=== PATIENT | female | born 1990 | race Caucasian/White ===

== ENCOUNTER → 2021-12-31 14:40 | Outpatient (CLI) | payer OTHER, SELFPAY ==
--- NOTE | 2021-12-31 14:40 | US_ITS ---
FINAL REPORT CLINICAL HISTORY: abnormal uterine bleeding FINDINGS: Transvaginal sonographic images of the pelvis were obtained. The uterus measures 6.9 x 4.0 x 3.7 cm. The endometrium measures 6 mm, which is within normal limits. No uterine mass is identified. The right ovary measures 3.6 cm in length and left ovary measures 2.6 cm in length. Normal blood flow seen to the ovaries. There is a 2.4 cm right ovarian cyst. There is no evidence of free fluid. IMPRESSION: 2.4 cm right ovarian cyst. Reviewed, Interpreted and Dictated by Joby Moore III, MD Transcribed by Crystal Blackmon Authenticated and . [facility]
== END ==
PROVIDERS: PCP Internal Medicine Adolescent Medicine; Visit Provider Obstetrics & Gynecology
DX: N93.9 Abnormal uterine and vaginal bleeding, unspecified (principal)
CPT/HCPCS: 76830

== ENCOUNTER 2023-12-12 11:17 | Emergency (ER) | payer OTHER, SELFPAY ==
[2023-12-12 11:37] VITALS: BMI 20.7
[2023-12-12 11:47] LABS: Microscopic, Urine URINE MICROSCOPIC (MICROSCOPIC)
[2023-12-12 12:15] VITALS: BP 123/80; PULSE 111; RESP 20; TEMP 36.8; O2SAT 100; BMI 20.9
--- NOTE | 2023-12-12 12:29 | ED_ITS ---
Discharge Plan Disposition Patient Disposition: Home, Self-Care Condition: Good Prescriptions Prescriptions: New nitrofurantoin monohyd/m-cryst [Macrobid] 100 mg capsule 100 mg PO Q12H 7 Days Qty: 14 0RF Rx Instructions: must administer with a meal/food phenazopyridine [Pyridium] 200 mg tablet 200 mg PO Q8H 2 Days Qty: 6 0RF No Action buprenorphine-naloxone 8-2 mg tablet, sublingual 1 ea SUBLINGUAL DAILY Patient Comments: PLACE 1 TABLET UNDER THE TONGUE ONCE A DAY cyanocobalamin (vitamin B-12) 1,000 mcg capsule 1,000 mcg PO DAILY levothyroxine [Synthroid] 50 mcg tablet 50 mcg PO DAILY norethindrone-e.estradiol-iron [Aidan Fe 03/22 (28)] 1 mg-20 mcg (21)/75 mg (7) tablet 1 tab PO DAILY Qty: 84 1RF Rx Instructions: Take 21 tablets, skip placebo and start another pack. cyclobenzaprine 10 mg tablet 10 mg PO DAILY Referrals Follow up/Referrals: Chris Rosales MD [Primary Care Provider] - See instructions Activity Restrictions/Add. Instructions Additional Instructions/Restrictions: *Increase fluids. Water not Soda or Tea *Start antibiotic immediately and be sure to take as ordered for the FULL length of time although you should start to see improvement over the next 48 hours *Pyridium as needed Remember this medication will turn your urine . This is normal but it will stain what ever it gets on *You should not use Pyridium for more than 48 hours. If so , follow up with your primary physician to review urine culture and ensure that antibiotic is adequate for infection *Be SURE to follow up anytime for new or worsening symptoms with your family doctor. AND in 48 hours for urine culture results with your family doctor, if you do not have a doctor then you may call back to the [facility] for urine culture results and further treatment. We do recommend that you choose and establish care with a Primary Care Physician. ?AND follow up with them ?in 10-14 days to repeat UA to ensure infection is resolved and blood no longer present *Be sure to let your PCP know that we sent urine cultures from the [facility] so they can follow up to ensure that you area the on the correct antibiotic Call your doctor office and make appointment for 48 hours (2 days from today) ?to follow up and get the results of your urine culture and further treatment Clinical Impressions Clinical Impression: UTI (urinary tract infection) Qualifiers: Urinary tract infection type: site unspecified Hematuria presence: with hematuria Qualified Code(s): N39.0 - Urinary tract infection, site not specified Instructions Patient Instructions: DI for Urinary Tract Infection (UTI), Urinary Tract Infection Print Language Print Language: Kyrgyz Discharge ED Provider: Julissa Akers [facility] [place] General Stated complaint: woke up with blood in urine, frequent urination Mode of Arrival: Ambulatory Source of Information: Patient Limitations: No Limitations Time Seen by Provider: 12/12/23 12:29 Description of Symptoms (Recalled from Triage Doc. by RN): PATIENT C/O BLOOD IN URINE THIS MORNING. PATIENT DENIES ANY PAIN AND STATES THE BLOOD HAS CURRENTLY STOPPED HEENT Symptoms (Recalled from RN notes): No Resp Symptoms (Recalled from RN notes): No Skin Symptoms (Recalled from RN notes): No MS Symptoms (Recalled from RN notes): No Functional Status (Recalled from RN notes): WNL History of Present Illness Provider Complaint: Patient states that she recently started flexeril for spasms in her neck and she started with urinary urgency and frequency felt like she had a UTI and noticed she had blood in her urine States since then it has stopped but still having urgency and frequency Denies low back pain Denies pelvic pain Denies fever Denies hx of kidney stones Related Data Home Medications ?Medication ?Instructions ?Recorded ?Confirmed buprenorphine 8 mg-naloxone 2 mg 1 ea sublingual DAILY 05/30/20 12/12/23 sublingual tablet cyanocobalamin (vitamin B-12) 1,000 mcg PO DAILY 12/20/21 12/12/23 1,000 mcg capsule levothyroxine 50 mcg tablet 50 mcg PO DAILY 12/20/21 12/12/23 (Synthroid) cyclobenzaprine 10 mg tablet 10 mg PO DAILY 12/12/23 12/12/23 Previous Rx's ?Medication ?Instructions ?Recorded norethindrone 1 mg-ethinyl 1 tab PO DAILY #84 tabs 11/14/23 estradiol 20 mcg (21)-iron 75 mg (7) tablet (Aidan Fe 03/22 ()) nitrofurantoin 100 mg PO Q12H 7 days #14 caps 12/12/23 monohydrate/macrocrystals 100 mg capsule (Macrobid) phenazopyridine 200 mg tablet 200 mg PO Q8H pain 2 days #6 tabs 12/12/23 (Pyridium) Allergies Allergy/AdvReac Type Severity Reaction Status Date / Time metronidazole [From Flagyl] Allergy Mild itching,fever, Verified 02/12/23 13:59 welps miconazole [MICONAZOLE] Allergy Unknown Verified 02/12/23 13:59 propoxyphene [PROPOXYPHENE] Allergy Unknown Verified 02/12/23 13:59 Worker's Comp Is this a Worker's Comp case?: No [facility] Disclaimer: The information contained in this section may have been updated after the patient was seen, as this information can be updated by other users. Medical History History of drug abuse History of hypothyroidism Hypothyroidism Surgical History History of appendectomy Family History Other Alcoholism Anemia Asthma Cancer Diabetes Substance abuse Thyroid disorder Social History Smoking Status: Former smoker tobacco type: cigarettes alcohol intake: never substance use type: denies use current occupational status: unemployed Travel in the last 8 weeks: None ROS Obtained: Yes All systems reviewed & no additional complaints except as documented and Yes Systems reviewed as appropriate & no additional complaints except as documented Eyes Eyes: Reports system reviewed and no additional complaints, except as documented and Reports as per HPI ENT Ears, Nose, Mouth, and Throat: Reports system reviewed and no additional complaints, except as documented and Reports as per HPI Cardiovascular Cardiovascular: Reports system reviewed and no additional complaints, except as documented and Reports as per HPI Respiratory Respiratory: Reports system reviewed and no additional complaints, except as documented and Reports as per HPI Gastrointestinal Gastrointestingal: Reports system reviewed and no additional complaints, except as documented and as per HPI; Denies abdominal pain Genitourinary Female Genitourinary: Reports system reviewed and no additional complaints, except as documented, Reports as per HPI, Reports dysuria, Reports hematuria, Reports urinary frequency and Reports urinary urgency Physical Exam General General appearance: alert and in no apparent distress ENT ENT exam: Present mucous membranes moist Respiratory Respiratory exam: Present normal lung sounds bilaterally; Absent respiratory distress or wheezes Cardiovascular Cardiovascular exam: Present regular rate, normal rhythm and normal heart sounds Abdominal Exam Abdominal exam: Present soft and normal bowel sounds; Absent distention, tenderness, guarding or rebound Neurological Exam Neurological exam: Present alert, oriented X3 and normal gait Medical Decision Making Medical Records Screening: Per USPSTF and CDC recommendations, given the prevalence of disease in our region, it is our hospital?s policy to screen for HIV and viral Hepatitis for all patients aged 18 and over and those with ongoing risk factors. [place] Inquiry Pt receiving controlled substance: No N[place]h was queried for this patient: No Vital Signs: 12/12/23 12:15 Temperature 98.3 F Temperature Source Oral Pulse Rate [Left Brachial] 111 H Respiratory Rate 20 Blood Pressure [Left Arm] 123/80 Blood Pressure Mean [Left Arm] 94 Blood Pressure Source [Left Arm] Automatic Cuff Blood Pressure Position [Left Arm] Sitting 02 Sat by Pulse Oximetry 100 Oxygen Delivery Method Room Air Lab Data Lab results reviewed: Yes I reviewed the patient's lab results. Orders (Tests/Meds): ORDERS Category Date Time Status UA [Urinalysis and Microscopic] Stat Lab 12/12/23 11:36 Received
[2023-12-12 12:31] LABS: Appearance,Urine CLEAR (Clear); Bilirubin,Urine Negative (Negative); Blood, Urine 2+ (Negative); Color,Urine YELLOW (Yellow); Glucose,Urine (UA) Negative (Negative); Ketones,Urine Negative (Negative); Leukocyte Esterase,Urine TRACE (Negative); Nitrate,Urine Negative (Negative); Protein,Urine TRACE (Negative)
[2023-12-12 12:46] VITALS: BP 123/80; PULSE 111; RESP 20; TEMP 36.8; O2SAT 100
[2023-12-12 12:50] LABS: Bacteria,Urine Trace /lpf
== END 2023-12-12 12:48 | disposition home or self-care (01) ==
PROVIDERS: Emergency Provider Nurse Practitioner; PCP Internal Medicine Adolescent Medicine
DX: N39.0 Urinary tract infection, site not specified (principal)
CPT/HCPCS: 81001; 99213; G0381

== ENCOUNTER 2024-03-12 09:44 | Outpatient (CLI) | payer OTHER, SELFPAY ==
--- NOTE | 2024-03-12 09:45 | US_ITS ---
PROCEDURE: US TRANSVAGINAL CLINICAL INDICATION: Lower Abdominal pain, Secondary Amenorrhea COMPARISON: CT ABDPELW/O CT ABD PELVIS W/O CONTRAST from 02/18/2013 US PTV US PELVIS-TRANSVAGINAL ONLY from 01/03/2016 US US TRANSVAGINAL from 12/31/2021 FINDINGS: Transvaginal sonographic images of the pelvis were obtained. UTERUS: 6.7cm x 4.0cmx 3.5cm retroverted with a combined endometrial thickness of 12mm. The endometrium appears trilaminar and in-homogeneous. See image 12. There is a small amount of fluid within the cervix. See images 13-15. LEFT OVARY: [id number] with a volume of 3.9ml. RIGHT OVARY: Not visualized Left ovary is seen and appears normal. Doppler flow to left ovary is seen. There is a small amount of fluid in the cul-de-sac. IMPRESSION: 1. Retroverted uterus normal in shape and size. The endometrium measures 12 mm and appears in-homogeneous and trilaminar. 2. There is a small amount of fluid within the cervix, possibly blood or mucus. 3. The left ovary is seen appear normal. The right upper was not visualized, possibly surgically absent. 4. There is a small amount of fluid in the cul-de-sac. Dictated by: Saúl Allred MD 03/12/2024 18:53 Saúl Allred MD in [place] 03/12/2024 18:53
== END 2024-03-12 23:59 | disposition home or self-care (01) ==
PROVIDERS: PCP Internal Medicine Adolescent Medicine; Visit Provider Obstetrics & Gynecology
DX: R10.30 Lower abdominal pain, unspecified (principal); N91.1 Secondary amenorrhea
CPT/HCPCS: 76830